=== PATIENT | male | born 1950 | race Caucasian/White ===

== ENCOUNTER 2017-12-01 06:13 | Emergency (ER) | payer OTHER ==
[~2017-12-01] VITALS: Ht 175.3 cm; Wt 79.4 kg
[~2017-12-01 06:13] MED LIST: SYNTHROID50 MCG
[2017-12-01] MEDS ORDERED: METFORMIN HCL1000 M1 (06:22)
== END 2017-12-01 16:12 | disposition home or self-care (01) ==
LOC: ER 06:13
DX: J11.1 Influenza due to unidentified influenza virus with other respiratory manifestations (principal); J40 Bronchitis, not specified as acute or chronic